=== PATIENT | female | born 1990 | race Caucasian/White ===

== ENCOUNTER 2018-08-16 15:16 | Emergency (ER) | payer MEDICAID ==
[~2018-08-16] VITALS: Ht 165.1 cm; Wt 59.0 kg
[2018-08-16 15:25] VITALS: BP_SYST 121
[2018-08-16 16:25] LABS: BILIRUBIN,URINE NEGATIVE (NEGATIVE); CLARITY/URINE CLEAR (CLEAR); COLOR,URINE YELLOW (YELLOW); GLUCOSE,URINE NEGATIVE (NEGATIVE); KETONES,URINE NEGATIVE (NEGATIVE); LEUKOCYTE ESTERASE ,URINE 1+ (NEGATIVE); NITRITE, URINE NEGATIVE (NEGATIVE); PH,URINE 5.5 (5.0-8.0); PROTEIN URINE NEGATIVE (NEGATIVE); UROBILINOGEN,URINE 0.2 (0.2-1.0)
[2018-08-16 16:27] LABS: BLOOD, URINE TRACE (NEGATIVE)
[2018-08-16 16:34] LABS: BACTERIA,URINE FEW /HPF (None Seen); RBC,URINE 0-3 /HPF (0-3)
[2018-08-16 16:35] LABS: MUCUS,URINE None Seen /LPF (None Seen)
[2018-08-16 17:43] VITALS: BP_SYST 118
== END 2018-08-16 17:44 | disposition home or self-care (01) ==
LOC: SED 15:16
DX: O23.41 Unspecified infection of urinary tract in pregnancy, first trimester (principal); R03.0 Elevated blood-pressure reading, without diagnosis of hypertension; Z3A.01 Less than 8 weeks gestation of pregnancy
CPT/HCPCS: 81000-TC; 81025; 87086; 99283

== ENCOUNTER 2018-08-19 12:38 | Emergency (ER) | payer MEDICAID ==
[~2018-08-19] VITALS: Ht 165.1 cm; Wt 59.0 kg
[2018-08-19 12:38] VITALS: BP_SYST 117
--- NOTE | 2018-08-19 12:38 | NUR ---
BROUGHT BACK TO BED #1 AND TRIAGED. REPORT GIVEN TO ZAKIA
--- NOTE | 2018-08-19 12:50 | NUR ---
ER Dr. Mendoza at bedside examining patient.
--- NOTE | 2018-08-19 12:55 | NUR ---
PATIENT COMPLAINING OF ABDOMINAL PAIN ON LEFT SIDE NON RADIATING. PATIENT SAID IT IS 5/10. PATIENT HAS NOT TAKEN ANY MEDICATIONS FOR PAIN. PATIENT STATES NO VAGINAL BLEEDING NOTICED. PATIENT SAID LMP WAS 3/1. PATIENT COMPLAINING OF NASUEA. NO COMPLAINTS OF SOB. PATIENT ALERT AND ORIENTED X4.
--- NOTE | 2018-08-19 13:02 | NUR ---
PATIENT LEAVING TO [facility] SOUND IN STABLE CONDITION.
[2018-08-19 13:58] LABS: BASOPHILS % (AUTO) 0.2 % (0.0-2.0); EOSINOPHILS # (AUTO) 0.1 K/uL (0.0-0.4); EOSINOPHILS % (AUTO) 0.6 % (0.0-4.0); HEMATOCRIT 41.3 % (36-48); HEMOGLOBIN 14.3 g/dL (12.0-16.0); LYMPHOCYTES # (AUTO) 1.3 K/uL (1.0-5.5); LYMPHOCYTES % (AUTO) 14.5 % (20.5-51.5); MEAN CORPUSCULAR HEMOGLOBIN 30 pg (27-31); MEAN CORPUSCULAR HGB CONC 35 % (32-36); MEAN CORPUSCULAR VOLUME 86 fL (79.0-98.0); MONOCYTES # (AUTO) 0.4 K/uL (0.0-1.0); MONOCYTES % (AUTO) 4.9 % (1.7-9.3); NEUTROPHILS # (AUTO) 7.1 K/uL (1.8-7.7); NEUTROPHILS % (AUTO) 79.8 % (40.0-70.0); PLATELET COUNT (AUTO) 227 K/uL (130-430); WHITE BLOOD COUNT (AUTO) 8.9 K/uL (4.8-10.8)
[2018-08-19 14:03] LABS: CALCIUM 9.3 mg/dL (8.4-11.0); CREATININE 0.57 mg/dL (0.55-1.30); POTASSIUM 3.5 mmol/L (3.5-5.1)
[2018-08-19 14:08] LABS: ALBUMIN 3.7 g/dL (3.4-4.8); TOTAL BILIRUBIN 0.4 mg/dL (0.0-1.0)
--- NOTE | 2018-08-19 14:24 | NUR ---
ER Dr. Mendoza at bedside talking to patient.
--- NOTE | 2018-08-19 15:25 | NUR ---
Patient given written and verbal discharge instructions and verbalizes understanding. ER MD discussed with patient the results and treatment provided. Patient in stable condition. ID arm band removed. IV catheter removed intact and dressing applied, no active bleeding. NO Rx given. Patient educated on pain management and to follow up with PMD. Pain Scale 4/10 TOLERABLE. Opportunity for questions provided and answered. Medication side effect fact sheet provided.
[2018-08-19 15:27] VITALS: BP_SYST 111
== END 2018-08-19 15:25 | disposition home or self-care (01) ==
LOC: SED 12:38
DX: O26.891 Other specified pregnancy related conditions, first trimester (principal); R10.32 Left lower quadrant pain; Z3A.08 8 weeks gestation of pregnancy
CPT/HCPCS: 36415; 76805-TC; 80053; 84702-TC; 85025; 86901; 99284